=== PATIENT | female | born 1955 | race Caucasian/White ===

== ENCOUNTER 2018-07-10 16:31 | Emergency (ER) | payer OTHER ==
[~2018-07-10] VITALS: Ht 154.9 cm; Wt 49.9 kg
[2018-07-10] MEDS ORDERED: ASPIR-LOW81 MG PO (16:58)
[2018-07-10] MEDS ORDERED: LIPITOR20 MG PO (16:59)
[2018-07-10] MEDS ORDERED: CITALOPRAM HBR20 MG PO (16:59)
[2018-07-10] MEDS ORDERED: GABAPENTIN300 MG PO (17:00)
[2018-07-10] MEDS ORDERED: LEVOTHYROXINE50 MCG PO (17:00)
[2018-07-10] MEDS ORDERED: MAGOX 400400 MG PO (17:01)
[2018-07-10] MEDS ORDERED: LISINOPRIL2.5 MG PO (17:01)
[2018-07-10] MEDS ORDERED: OMEPRAZOLE20 MG PO (17:01)
[2018-07-10] MEDS ORDERED: QUIN B STRONG1 EACH PO (17:02)
[2018-07-10] MEDS ORDERED: VITAMIN D-32000 UNIT PO (17:02)
--- NOTE | 2018-07-11 22:24 | EKG ---
[facility] [address] [facility] [place] [address] Signed Normal sinus rhythm Normal ECG No previous ECGs available Confirmed by STEPHANIE SUAREZ MD ([id number]) on 07/11/2018 10:23:45 PM Electronically Signed By: STEPHANIE SUAREZ MD 07/11/18 2224 PATIENT NAME: CORINE PARSONS Electrocardiogram DATE OF : 57 PHYSICIAN: STEPHANIE SUAREZ MD REPORT #: [id number] REPORT IS CONFIDENTIAL AND NOT TO BE RELEASED WITHOUT AUTHORIZATION
== END 2018-07-10 18:21 ==
LOC: ED 16:31
DX: R53.1 Weakness (principal); Z79.82 Long term (current) use of aspirin; Z79.899 Other long term (current) drug therapy; Z51.81 Encounter for therapeutic drug level monitoring
CPT/HCPCS: 70450; 71045; 80053; 81001; 85025; 85610; 85730; 93005; 93010; 99285-25

== ENCOUNTER 2021-08-17 10:08 | Emergency (ER) | payer MEDICARE, OTHER ==
[~2021-08-17] VITALS: Ht 154.9 cm; Wt 49.9 kg
[~2021-08-17 10:08] MED LIST: ASPIR-LOW81 MG PO; CITALOPRAM HBR20 MG PO; FLEET ENEMA133 ML PR; GABAPENTIN300 MG PO; GABAPENTIN600 MG PO; GAS RELIEF 8080 MG PO; LEVOTHYROXINE50 MCG PO; LIPITOR20 MG PO; LISINOPRIL2.5 MG PO; MAGOX 400400 MG PO; MELOXICAM7.5 MG PO; MILK OF MA400 MG/5 M PO; NEURONTIN300 MG PO; NICODERM CQ1 EAC1 TD; OMEPRAZOLE20 MG PO; QUIN B STRONG1 EACH PO; VITAMIN D-32000 UNIT PO
--- OUTSIDE RECORDS SUMMARY | 2021-08-17 10:10 | XMS ---
PreManage Notification: CORINE PARSONS Security Grit Blaster Events No recent Security Events currently on file CRITERIA MET - BETSYP CARE PROVIDERS RODO MOSSiatrist Current SUKHJINDER MCKEON PHONE: [phone] CAREY DE LEON Internal Medicine Current PHONE: Unknown Aure Irizarry Trace Clerk/Clearance Rep 08/06/2019-Current PHONE: [phone] Aure Irizarry Trace Clerk/Clearance Rep 07/06/2021-Current PHONE: [phone] JAILYN CAN Nurse Practitioner Current PHONE: [phone] HAL [facility] 08/03/2018-Current PHONE: Unknown ROBERTO KELLY Nurse Practitioner: Family Current PHONE: Unknown TAMAR ARDON Internal Medicine Current PHONE: [phone] YAIR MORRIS Nurse Practitioner Current PHONE: [phone] JAJA RICHMOND I. Physician Environmental Projects Advisor Current PHONE: Unknown KERMIT BONILLA Nurse Practitioner Current PHONE: Unknown JOE TRIPP Nurse Practitioner Ha CAST PHONE: [phone] IVANA Nurse Practitioner Ha MOCTEZUMA PHONE: [phone] NOAM [facility] Current PHONE: Unknown STEVEN [facility] Current PHONE: [phone] ZEESHAN HURTADO Physician Environmental Projects Advisor Current PHONE: Unknown Malu has no Care Guidelines for this patient. Linda VISIT COUNT (12 MO.) 1 AIXA Maria TOTAL 1 NOTE: Visits indicate total known visits. ED/UCC VISIT TRACKING (12 MO.) 08/17/2021 10:08 AIXA [facility] [place] TYPE: Emergency COMPLAINT: - STOMACH PAIN INPATIENT VISIT TRACKING (12 MO.) No inpatient visits to display in this time frame [id number]
[2021-08-17] MEDS ORDERED: LIPITOR10 MG (11:00)
[2021-08-17] MEDS ORDERED: ASPIRIN81 MG (11:00)
[2021-08-17] MEDS ORDERED: LIPITOR20 MG (11:01)
[2021-08-17] MEDS ORDERED: NORVASC10 MG PO (11:08)
== END 2021-08-17 12:40 | disposition home or self-care (01) ==
LOC: ED 10:08
DX: R10.9 Unspecified abdominal pain (principal); E78.5 Hyperlipidemia, unspecified; I10 Essential (primary) hypertension; F17.200 Nicotine dependence, unspecified, uncomplicated; Z79.899 Other long term (current) drug therapy; Z79.82 Long term (current) use of aspirin
CPT/HCPCS: 36415; 74022; 80053; 81001; 85025; 99284-25

== ENCOUNTER 2021-10-11 07:32 | Emergency (ER) | payer MEDICARE, OTHER ==
[~2021-10-11] VITALS: Ht 154.9 cm; Wt 49.9 kg
[~2021-10-11 07:32] MED LIST changes: +ASPIRIN81 MG; +LIPITOR10 MG; +LIPITOR20 MG; +NORVASC10 MG PO
--- OUTSIDE RECORDS SUMMARY | 2021-10-11 07:34 | XMS ---
PreManage Notification: CORINE PARSONS Security Truss Puller Helper Events No recent Security Events currently on file CRITERIA MET - BETSYP CARE PROVIDERS RODO MOSSiatrist Current SUKHJINDER MCKEON PHONE: [phone] CAREY DE LEON Internal Medicine Current PHONE: Unknown Aure Irizarry Local Coordinator/Enginehouse Brakeman 08/06/2019-Current PHONE: [phone] Aure Irizarry Local Coordinator/Enginehouse Brakeman 07/06/2021-Current PHONE: [phone] JAILYN CAN Nurse Practitioner Current PHONE: [phone] HAL [facility] 08/03/2018-Current PHONE: Unknown ROBERTO KELLY Nurse Practitioner: Family Current PHONE: Unknown TAMAR ARDON Internal Medicine Current PHONE: [phone] YAIR MORRIS Nurse Practitioner Current PHONE: [phone] JAJA RICHMOND Case Liner Current PHONE: Unknown KERMIT BONILLA Nurse Practitioner Current PHONE: Unknown JOE TRIPP Nurse Practitioner Ha CAST PHONE: [phone] IVANA Nurse Practitioner Ha MOCTEZUMA PHONE: [phone] NOAM [facility] Current PHONE: Unknown STEVEN [facility] Current PHONE: [phone] ZEESHAN HURTADO Physician Case Liner Current PHONE: Unknown Malu has no Care Guidelines for this patient. Linda VISIT COUNT (12 MO.) 2 AIXA Maria TOTAL 2 NOTE: Visits indicate total known visits. ED/UCC VISIT TRACKING (12 MO.) 10/11/2021 07:32 AIXA [facility] [place] TYPE: Emergency COMPLAINT: - ABD PAIN 08/17/2021 10:08 AIXA [facility] [place] TYPE: Emergency COMPLAINT: - STOMACH PAIN DIAGNOSES: - Other care home (current) drug therapy - Nicotine dependence, unspecified, uncomplicated - Unspecified abdominal pain - Hyperlipidemia, unspecified - shelter (current) use of aspirin - Essential (primary) hypertension INPATIENT VISIT TRACKING (12 MO.) No inpatient visits to display in this time frame [id number]
[2021-10-11] MEDS ORDERED: CEPHALEXIN500 M1 PO (11:36)
[2021-10-11] MEDS ORDERED: HYDROCODON-ACE1 EA10 PO (11:36)
== END 2021-10-11 12:53 | disposition home or self-care (01) ==
LOC: ED 07:32
DX: N39.0 Urinary tract infection, site not specified (principal); E87.6 Hypokalemia; E78.5 Hyperlipidemia, unspecified; I10 Essential (primary) hypertension; F17.200 Nicotine dependence, unspecified, uncomplicated; Z79.899 Other long term (current) drug therapy; Z79.82 Long term (current) use of aspirin
CPT/HCPCS: 36415; 74177; 76705; 80053; 81001; 83690; 85025; 87088; 96361; 96375; 99284-25; A9270; J0696; J1170; J7030